=== PATIENT | male | born 2000 | race African-American/Black ===

== ENCOUNTER 2024-10-03 21:22 | Emergency (ER) | payer BC, SELFPAY ==
--- NOTE | ~2024-10-03 | CT_ITS ---
CLINICAL HISTORY: headache, no sig hx of headaches CT head without contrast Comparison: None Findings: No acute intracranial hemorrhage. No midline shift or hydrocephalus. No arterial territorial infarction by CT. Dural calcifications noted. Posterior fossa arachnoid cysts measures 4 mm. Prominent perivascular spaces favored over lacunar infarctions of the right basal ganglia region (image 35 of series 4). These are not further characterize by CT. Mucosal thickening of the imaged paranasal sinuses. Imaged mastoid air cells are well aerated. No acute skull fracture. IMPRESSION: No acute intracranial abnormality by CT. This document has been electronically signed by: Hardeep Anne MD on 10/04/2024 01:21:37
[2024-10-03 21:32] VITALS: BP 134/81; PULSE 75; RESP 16; TEMP 36.8; O2SAT 97; BMI 36.6
[2024-10-03 21:43] LABS: MANUAL DIFF FLAG NO
[2024-10-03 21:51] LABS: Basophils Percent Auto 0.5 % (0-2); Eosinophils Absolute Auto 0.1 X10*3/uL (0.0-0.4); Eosinophils Percent Auto 0.8 % (0-4); Hematocrit 37.7 % (42.0-52.0); Hemoglobin 13.5 g/dl (14.0-18.0); Imm Gran Abs Auto 0.01 X10*3/uL (0.00-0.03); Imm Gran Pct Auto 0.2 % (0.0-0.4); Lymphocytes Absolute Auto 2.2 X10*3/uL (1.2-4.9); Lymphocytes Percent Auto 35.9 % (20-40); Mean Corpuscular HGB Conc 35.8 g/dl (31.0-36.0); Mean Corpuscular Hemoglobin 26.1 pg (27.0-33.0); Mean Corpuscular Volume 72.9 fL (80.0-98.0); Mean Platelet Volume 9.1 fL (9.4-12.4); Monocytes Absolute Auto 0.5 X10*3/uL (0.1-1.2); Monocytes Percent Auto 8.4 % (2-11); Neutrophils Absolute Auto 3.3 x10*3/uL (2.0-8.3); Neutrophils Percent Auto 54.2 % (45-73); Platelet Count 286 X10*3/uL (160-400); Red Blood Count 5.17 X10*6/uL (4.60-5.80); Red Cell Distribution Width 14.3 % (11.0-16.0); White Blood Count 6.2 X10*3/uL (4.8-10.8)
[2024-10-03 21:58] LABS: Alanine Aminotransferase 34 U/L (0-40); Albumin Level 4.2 g/dL (3.5-5.0); Alkaline Phosphatase 78 U/L (39-117); Anion Gap 11 (12-20); Aspartate Amino Transferase 30 U/L (5-37); Bilirubin Total 0.3 mg/dL (0.0-1.0); Blood Urea Nitrogen 11 mg/dL (9-16); Calcium 8.8 mg/dL (8.4-10.2); Carbon Dioxide 29 mmol/L (22-29); Chloride 106 mmol/L (96-108); Creatinine Clr Calc Pharmacy 115.9; Estimated Glomerular Filt Rate > 60; Glucose Random 82 mg/dL (60-115); Potassium 3.8 mmol/L (3.3-5.1); Sodium 142 mmol/L (135-145)
[2024-10-03 22:47] VITALS: BP 119/82; PULSE 83; RESP 16; TEMP 36.6; O2SAT 97
--- NOTE | 2024-10-03 23:44 | ED.GENADULT ---
HPI - General Adult General Chief complaint: Headache Stated complaint: Headache Time Seen by Provider: 10/03/24 23:44 History of Present Illness ED Provider: Jessee BORJAS narrative: The patient is a 24-year-old male who has no definite past medical history who says that yesterday evening (Wednesday evening) at around 22:00 he had a woken from a nap with a headache. [place] the pain behind his eyes and was associated with watering of his eyes. The headache is continued today and he also feels dizzy. He has not had any nausea or vomiting. He does not feel that he has any vision changes. No definite photophobia. No fever, sweats, chills. No sore throat. No chest pain. No cough or sputum. No abdominal pain, nausea, vomiting Related Data Allergies Allergy/AdvReac Type Severity Reaction Status Date / Time No Known Allergies Allergy Verified 10/03/24 21:35 Review of Systems Review of Systems: Yes all other systems are reviewed and are negative [facility] Social History Social History Smoked in Last 30 Days: No Use of substances other than those prescribed or required for medical reasons: No Advance Directives: No Advance Directives Information Provided: Yes Do you have a plan to hurt others: No Plan Physical Exam ED Vital Signs: Vital Signs - 24 hr 10/03/24 21:32 10/03/24 22:47 Temperature 98.2 F 97.9 F Pulse Rate 75 83 Respiratory Rate 16 16 Blood Pressure 134/81 119/82 Pulse Oximetry 97 97 Oxygen Delivery Method Room Air Room Air BMI result Body Mass Index 36.6 Const Other: The patient is awake and alert. He does not appear in acute distress. HENMT Other: Face is symmetrical. Mucous membranes are moist. The posterior pharynx is normal. Eyes Other: Pupils are round, equal, and reactive to light, extraocular movements are intact, funduscopic exam is unremarkable Neck Other: The neck is fully supple, no adenopathy, good range of motion Resp Effort & Inspection: normal respiratory effort Auscultation: clear to auscultation bilaterally Cardio Rate: regular rate Rhythm: regular rhythm Heart sounds: S1 normal heart sound present and S2 normal heart sound present GI Other: The abdomen is soft and nontender Skin Other: Skin is intact Neuro Other: The patient is awake and alert with a normal mental status. Cranial nerves 2-12 are intact. He moves his extremities normally. He has normal coordination. He has a normal gait. He has a supple neck. He seems neurologically intact. Extrem Other: No peripheral edema. Medications Administered Discontinued Medications Generic Name Dose Route Start Last Admin Trade Name Olga PRN Reason Stop Dose Admin Diphenhydramine HCl 25 mg 10/04/24 00:21 10/04/24 00:49 Diphenhydramine Hcl 50 Mg/Ml Vial IVPUSH 10/04/24 00:22 25 mg ONCE ONE Administration Sodium Chloride 1,000 mls @ 999 mls/hr 10/04/24 00:30 10/04/24 03:05 Ns IV 10/04/24 01:30 Infused .Q1H1M EVA Infusion Ketorolac Tromethamine 10 mg 10/04/24 00:21 10/04/24 00:53 Ketorolac Tromethamine 15 Mg/Ml Vial IVPUSH 10/04/24 00:22 10 mg ONCE ONE Administration Metoclopramide HCl 10 mg 10/04/24 00:21 10/04/24 00:50 Metoclopramide Hcl 10 Mg/2 Ml Vial IVPUSH 10/04/24 00:22 10 mg ONCE ONE Administration Medical Decision Making Medical Decision Making MDM Narrative: The patient is a 24-year-old male who presents complaining of a headache. Patient does not look unwell and he has a supple neck. Clinically he looks quite well. His vital signs are unremarkable. Labs are also unremarkable. He was treated with ketorolac and metoclopramide with improvement in his discomfort. He looked and felt better. He seemed appropriate for discharge. He should return if worse. Lab Data 10/03/24 21:41 10/03/24 21:40 Labs: Lab Results 10/03/24 10/03/24 Range/Units 21:40 21:41 WBC 6.2 (4.8-10.8) X10*3/uL RBC 5.17 (4.60-5.80) X10*6/uL Hgb 13.5 L (14.0-18.0) g/dl Hct 37.7 L (42.0-52.0) % MCV 72.9 L (80.0-98.0) fL MCH 26.1 L (27.0-33.0) pg MCHC 35.8 (31.0-36.0) g/dl RDW 14.3 (11.0-16.0) % Plt Count 286 (160-400) X10*3/uL MPV 9.1 L (9.4-12.4) fL Immature Gran % (Auto) 0.2 (0.0-0.4) % Neut % (Auto) 54.2 (45-73) % Lymph % (Auto) 35.9 (20-40) % [place] % (Auto) 8.4 (2-11) % Eos % (Auto) 0.8 (0-4) % Baso % (Auto) 0.5 (0-2) % Lymph # (Auto) 2.2 (1.2-4.9) X10*3/uL [place] # (Auto) 0.5 (0.1-1.2) X10*3/uL Eos # (Auto) 0.1 (0.0-0.4) X10*3/uL Baso # (Auto) 0.0 (0.0-0.2) X10*3/uL Abs Immat Gran (auto) 0.01 (0.00-0.03) X10*3/uL Absolute Neuts (auto) 3.3 (2.0-8.3) x10*3/uL Absolute Nucleated RBC 0.000 (0.0-0.012) X10*3/uL Nucleated RBC % (auto) 0.0 (0.0-0.2) /100WBC Sodium 142 (135-145) mmol/L Potassium 3.8 (3.3-5.1) mmol/L Chloride 106 (96-108) mmol/L Carbon Dioxide 29 (22-29) mmol/L Anion Gap 11 L (12-20) BUN 11 (9-16) mg/dL Creatinine 1.24 (0.5-1.4) mg/dL Estim Creat Clear Calc 115.9 Estimated GFR > 60 Random Glucose 82 (60-115) mg/dL Calcium 8.8 (8.4-10.2) mg/dL Total Bilirubin 0.3 (0.0-1.0) mg/dL AST 30 (5-37) U/L ALT 34 (0-40) U/L Alkaline Phosphatase 78 (39-117) U/L Total Protein 7.0 (6.5-8.0) g/dL Albumin 4.2 (3.5-5.0) g/dL Discharge Plan Discharge Clinical Impression: Headache Patient Disposition: Home, Self-Care Additional Instructions: Your testing in the emergency room today seems reassuring. I think that your headache was probably a migraine headache. Please plan on resting and taking it easy today. I expect you should be able to return to work on . Please work on getting a regular primary care doctor. You has been provided with the contact information for several local medical practices. I would recommend contacting them to see if you can find a practice taking new patients. Return to the emergency room for re-evaluation if significantly worse, Referrals: [facility] [Provider Group] [facility] [Provider Group] [facility] [Provider Group] [facility] [Provider Group] [facility] [place] [Provider Group] [facility] [place] [Provider Group] Stand Alone Forms: Work/School Release Interventions: ED Discharge Assessment Last Done: 10/04/24 03:04 Discharge Date/Time: 10/04/24 03:05 Print Language: Persian
[2024-10-04] MEDS: diphenhydrAMINE HCL 50 MG/ML VIAL 25 MG IVPUSH (00:49)
[2024-10-04] MEDS: Metoclopramide HCl 10 MG/2 ML VIAL IVPUSH (00:50)
[2024-10-04] MEDS: Ketorolac Tromethamine 15 MG/ML VIAL 10 MG IVPUSH (00:53)
[2024-10-04] MEDS: 0.9 % Sodium Chloride 1,000 ML 999 ML IV (00:55)
[2024-10-04 03:04] VITALS: BP 112/72; PULSE 68; RESP 16; TEMP 36.8; O2SAT 99
== END 2024-10-04 03:05 | disposition home or self-care (01) ==
PROVIDERS: Emergency Provider Emergency Medicine
DX: R51.9 Headache, unspecified (principal)
CPT/HCPCS: 36415; 70450; 80053; 85025; 96361; 96374; 96375; 99284; J1200; J1885; J2765

== ENCOUNTER → 2024-10-04 00:21 | Outpatient (BNV) | payer BC, SELFPAY | PROVIDERS: Emergency Provider Emergency Medicine; Visit Provider Radiology Neuroradiology | DX: R51.9 Headache, unspecified (principal) | CPT/HCPCS: 70450 ==